=== PATIENT | female | born 1990 | race Caucasian/White ===

== ENCOUNTER 2017-05-09 03:31 | Emergency (ER) | payer BC, OTHER ==
[2017-05-09 03:52] VITALS: BP 112/56
--- NOTE | 2017-05-09 04:01 | ED Physician Documentation ---
Upper Respiratory Symptoms - HISTORIAN Historian: patient - HPI Stated Complaint: FLU LIKE S/S Chief Complaint: Cough/ Upper Respiratory Additional Information: cough congestion ache all over fever onset 3-4 days takes tylenol ibu Duration: intermittent episodes Context: denies: recent foreign travel, insect bite(s), recent chemotherapy Severity: moderate Associated Symptoms: fever, chills, sore throat, hoarseness, chest pain, hurts to breathe, headache. denies: runny nose, productive cough, shortness of breath Worsened by Deep Breath: Yes - ROS CONST/EYES: denies: weakness, eye redness, eye itching CVS/RESP: none. denies: shortness of breath, palpitations LYMPH: denies: leg swelling, rash GI/: denies: none, abdominal pain, problems urinating, vomiting, nausea - PAST HX Lung Disease: none PE Risk Factors: none Surgeries/Procedures: none Immunizations: UTD. denies: influenza Allergies/Adverse Reactions: Allergies Allergy/AdvReac Type Severity Reaction Status Date / Time No Known Allergies Allergy Verified 05/09/17 03:51 Home Medications: Ambulatory Orders Medication Instructions Recorded NK [NK] 05/09/17 - SOCIAL HX Smoking History: non-smoker Alcohol Use: occasionally Drug Use: none - FAMILY HX Family History: no significant history - VITAL SIGNS Vital Signs: Vital Signs Temp Pulse Resp BP Pulse Ox 98.5 F 69 16 112/56 98 05/09/17 03:35 05/09/17 03:35 05/09/17 03:35 05/09/17 03:35 05/09/17 03:35 - REVIEWED ASSESSMENTS Nursing Assessment Reviewed: Yes Vitals Reviewed: Yes Upper Respiratory Symptoms - EXAM General Appearance: mild distress EENT: eyes nml inspection. No: TM erythema, pharynx nml Neck: normal inspection Respiratory: no resp. distress, breath sounds nml, speaks full sentences. No: no pain on inspiration, respiratory distress, prolonged expirations Abdomen: non-tender, no distention CVS: reg rate & rhythm, heart sounds normal Skin: color nml, no rash, warm,dry. No: cyanosis, diaphoresis Extremities: non-tender, normal range of motion Neuro/Psych: oriented x3, neuro intact, mood/affect nml Discharge Clincal Impression: inf type a Referrals: Primary Doctor,No [Primary Care Provider] - 2 Days Comments: increase fluids tylenol or ibu rec robitussin for cough Condition: Good Disposition: 01 HOME, SELF-CARE Decision to Admit: NO Decision Time: 04:04
[2017-05-09] MEDS: BENZONATATE 100 MG CAPSULE PO ONE ×2 (04:16)
== END 2017-05-09 04:16 | disposition home or self-care (01) ==
LOC: ED 03:31
DX: J09.X2 Influenza due to identified novel influenza A virus with other respiratory manifestations (principal)
CPT/HCPCS: 99282; A9270